=== PATIENT | male | born 1975 | race African-American/Black ===

== ENCOUNTER 2016-12-08 16:41 | Emergency (ER) | payer OTHER ==
[~2016-12-08] VITALS: Ht 190.5 cm; Wt 83.2 kg
[2016-12-08 16:45] VITALS: Ht 190.5 cm; Wt 83.2 kg
[2016-12-08] MEDS ORDERED: BUPIVACAINE 0.5 % 5 MG/1 ML MPF 30ML VIAL INFIL STA (16:52)
[2016-12-08] MEDS ORDERED: XYLOCAINE 1%/SOD BICARB 20 ML VIAL INFIL STA (16:52)
[2016-12-08] MEDS ORDERED: AMOXICILLIN/CLAVULANATE TAB 875 MG TAB PO STA (16:52)
--- NOTE | 2016-12-08 16:57 | EMERGENCY ROOM VISIT NOTE ---
ED Visit Note First contact with patient: 16:49 Chief Complaint: "Finger is split open, rt hand, 4th digit" History of Present Illness: this patient is a 41-year-old male who presents to the Emergency Department via private vehicle accompanied by female for evaluation of their right fourth digit laceration. Patient sustained the laceration while attempting to separate his 2 dogs. They report a moderate amount of bleeding initially. They deny any numbness or tingling into the distal extremity. They report no decreased range of motion of the affected digit. Patient rates his current discomfort as a 5/10. Patient's Tetanus status is currently up-to-date. Medications: None Allergies: As noted below. Specifically he notes an allergy to Percocet, but can take oxycodone. PMH: None reported SHx: patient lives locally with and kids. ROS: All pertinent positive and negative review of systems are appropriately documented in the History of Present Illness. Physical Exam: VITAL SIGNS - Vital signs and nursing notes were reviewed. Patient is afebrile , hypertensive at 141/68, non-tachycardic and is saturating well on room air 98% . GENERAL -41-year-old male appearing his stated age who is in no acute distress. Communicates well with provider and answers questions appropriately. SKIN - There is a 2 cm long laceration noted nearly circumferential around the distal portion of the right fourth digit through the proximal base of the fingernail. The edges gape apart with traction. No foreign bodies appreciated. Upon further examination there are deep structures including bony structures appreciated. There is no active bleeding noted. MUSCULOSKELETAL - Laceration as described above. +5/5 strength appreciated of the affected digit. Full range of motion of the affected digit. NEUROLOGIC -he is neurovascularly intact in this region. VASCULAR - Capillary refill was brisk. IMAGING: RIGHT FIFTH FINGER 3 VIEWS CLINICAL HISTORY: Fifth finger injury. FINDINGS: 3 views of the right fifth finger are obtained. No prior studies are available for comparison at the time of dictation. The skeletal structures are well mineralized. There is a minimally distracted avulsion fracture of the tuft of the fifth distal phalanx with overlying soft tissue edema and laceration. No additional fracture is seen. The fifth metacarpophalangeal and interphalangeal joints are preserved. No radiodense foreign body seen. IMPRESSION: Mildly distracted avulsion fracture through the tuft of the fifth distal phalanx with overlying soft tissue injury. Electronically signed by: Kobe Chong M.D. 12/08/2016 5:35 PM Dictated Date/Time: 12/08/2016 5:34 PM ED Course: Patient was seen and evaluated by myself. Risks and benefits of performing primary wound closure versus no repair were discussed with the patient who verbalizes understanding. The dog's rabies series are up-to-date, and his tetanus is up-to-date. Due to the nature and depth of the wound did elect to obtain a radiograph with results as above. This is now considered an open fracture given that there is a fracture and upon close examination there is a laceration down to the bone. Verbal consent was obtained prior to performing the procedure. 6 cc of 50/50 ratio of 1% buffered lidocaine and 0.5% bupivacaine was used to perform a digital block of the right fourth digit. The wound was cleansed and prepped in the typical sterile fashion utilizing normal saline and Betadine. The wound was sterilely draped. Patient was given Augmentin upon his arrival secondary to the nature of the wound, however after he was found to be an open fracture I did elect to consult orthopedics. I discussed the case with Dr. Canchola, at 6:22 PM, and he recommended an IV dose of antibiotics, outpatient management, loose closure of the wound, and prompt follow-up by having him call the office first thing tomorrow morning. Once proper anesthetization was established, the wound was further examined and demonstrated an open fracture. The wound was copiously irrigated with normal saline and Betadine. The wound was closed using 4 simple, 5-0 nylon sutures with the wound edges being well approximated. Patient tolerated the procedure well. No complications were met. The wound was cleansed and dressed with a Xeroform bulky dressing. A metal splint was applied to the finger for comfort. Patient educated on worrisome symptoms for return visit to the Emergency Department. Patient discharged to home in good condition. Prior to departure his vital signs did reveal that he was bradycardic. He was asymptomatic, and notes that he has had this since he was a child. An EKG was obtained secondary to the degree of bradycardia, and it was found to be 41 bpm, without ectopy or ischemic change. I told him that I would like to do a more thorough workup here, however he declined and he will follow-up in the outpatient setting. The case was discussed with my attending. He'll be discharged home with a prescription for Augmentin, as well as pain medicine. This will be in the form of oxycodone. He again noted that he can take this medication. In the treatment of this patient controlled medication was utilized and therefore the [facility], Prescription Drug Monitoring Program website was utilized to look up this patient. No concerns were identified that would prohibit or alter my treatment decision. In the evaluation and treatment of this patient, the following differential diagnoses were considered: Finger Fracture, Finger Dislocation, Finger Sprain, Finger Contusion, Jersey Finger, or Mallet Finger. Current/Historical Medications Scheduled Amoxicillin & Pot Clavulanate (Augmentin 875-125 mg), 1 TAB PO BID Scheduled PRN Oxycodone Ir (Roxicodone Ir), 1-2 TAB PO Q4H PRN for Pain Allergies Coded Allergies: Acetaminophen (Unverified Adverse Reaction, Severe, STOMACH CRAMPS, 12/08/16 ) Oxycodone (Unverified Adverse Reaction, Severe, STOMACH CRAMPS, 12/08/16) Uncoded Allergies: N (Allergy, Unknown, 07/22/02) NKDA (Allergy, Unknown, 07/22/02) Vital Signs Date Time Temp Pulse Resp B/P (MAP) Pulse Ox O2 Delivery O2 Flow Rate FiO2 12/08/16 20:03 36.9 39 18 133/80 98 12/08/16 19:27 42 140/74 41 135/85 39 133/80 12/08/16 19:21 43 18 132/73 98 Room Air 12/08/16 16:45 36.9 59 18 141/68 98 Room Air Laboratory Results 12/08/16 19:09 12/08/16 19:09 Test 12/08/16 19:09 Red Blood Count 4.64 M/uL (4.7-6.1) Mean Corpuscular Volume 93.5 fL (80-100) Mean Corpuscular Hemoglobin 32.3 pg (25-34) Mean Corpuscular Hemoglobin Concent 34.6 g/dl (32-36) RDW Standard Deviation 41.2 fL (36.4-46.3) RDW Coefficient of Variation 12.1 % (11.5-14.5) Mean Platelet Volume 11.0 fL (7.4-10.4) Anion Gap 9.0 mmol/L (3-11) Est Creatinine Clear Calc Drug Dose 105.1 ml/min Estimated GFR () 96.8 Estimated GFR (Non- 83.5 BUN/Creatinine Ratio 7.4 (10-20) Calcium Level 9.1 mg/dl (8.5-10.1) Medications Administered Medications (Trade) Dose Ordered Sig/Jaime Route Start Time Stop Time Status Last Admin Dose Admin Amoxicillin/ Clavulanate Potassium (Augmentin Tab) 875 mg NOW STAT PO 12/08/16 16:52 12/08/16 16:55 DC 12/08/16 17:14 875 MG Cefazolin Sodium (Ancef 1000mg/55 ml D5W) 1,000 mg NOW STAT IV 12/08/16 18:26 12/08/16 18:27 DC 12/08/16 18:57 1,000 MG Oxycodone HCl (Roxicodone Immediate Rel 5MG Home Pack) 1 homepack UD STAT PO 12/08/16 18:47 12/08/16 18:48 DC 12/08/16 18:47 1 HOMEPACK Amoxicillin/ Clavulanate Potassium (Augmentin 875MG Home Pack) 1 homepack UD STAT PO 12/08/16 18:47 12/08/16 18:49 DC 12/08/16 18:47 1 HOMEPACK Departure Information Impression Primary Impression: Laceration Additional Impression: Open fracture of finger of right hand Dispostion Home / Self-Care Condition GOOD Prescriptions Oxycodone Ir (Roxicodone Ir) 5 Mg Tab 1-2 TAB PO Q4H Y for Pain, #15 TAB For Initial Treatment Prov: Matthew Velez PA-C 12/08/16 Amoxicillin & Pot Clavulanate (Augmentin 875-125 mg) 1 Tab Tab 1 TAB PO BID, #10 TAB Prov: Matthew Velez PA-C 12/08/16 Referrals No Doctor, Assigned (PCP) Marcos Canchola D.O. Patient Instructions [facility] Additional Instructions Discharge Instructions: You have received 4 sutures on your right 5th digit. These sutures are NOT dissolvable and WILL need to be removed by a health care provider in 14 days. You can return to the Emergency Department or the orthopedic doctor. Please wear the splint for comfort until the sutures are removed. Because there is a fractured of your finger, the orthopedic surgeon has been consulted. They recommend you call their office first thing tomorrow morning. ( Dr. Canchola) Number listed. Proper wound care is essential for adequate wound healing and infection prevention. You can shower and clean the wound with soap and water. Do not scour over the wound, pat dry with a towel. Do not submerse the wound (i.e. bathe or dish wash) until the sutures have been removed. You can use an antibiotic ointment with a dressing over the wound for the next 3-4 days. After this time you may leave the wound dry and open to the air. If crust develops over the wound you can use a Q-tip to apply a 1:1 peroxide:water solution to clean the wound. Look for signs of infection of the wound including: increased pain, swelling, foul discharge, streaking, or increased temperature. If any of these are noticed you should return to the Emergency Department for further assessment and treatment. As with any laceration you may have received nerve damage to the surrounding tissues. This damage may or may not be permanent. You should keep the area covered with sunscreen for the first 6 months to 1 year when at risk for exposure to help minimize scarring. You can also use scar reducing creams or Vitamin E oil to help minimize scarring. For pain control, you can use the following [id number] medicines (if >12 yo): - Regular strength (325mg/tab) Tylenol (acetaminophen) 2 tabs every 4-6 hours as needed. Do not exceed 12 tablets in a 24 hour period. Avoid taking more than 3 grams (3000 mg) of Tylenol per day. This includes any other sources of acetaminophen you may take on a regular basis. - Regular strength (200 mg/tab) Advil (ibuprofen) 1-2 tabs every 4-6 hours as needed. Do not exceed a dose of 3200 mg per day. Return to the emergency department if your symptoms worsen despite treatment course outlined above. Please take the Augmentin to help prevent infection. This is one tablet every 12 hours. Please return to the emergency department with any new/concerning symptoms. Problem Qualifiers
--- NOTE | 2016-12-08 17:37 | DIAGNOSTIC IMAGING REPORT ---
RIGHT FIFTH FINGER 3 VIEWS CLINICAL HISTORY: Fifth finger injury. FINDINGS: 3 views of the right fifth finger are obtained. No prior studies are available for comparison at the time of dictation. The skeletal structures are well mineralized. There is a minimally distracted avulsion fracture of the tuft of the fifth distal phalanx with overlying soft tissue edema and laceration. No additional fracture is seen. The fifth metacarpophalangeal and interphalangeal joints are preserved. No radiodense foreign body seen. IMPRESSION: Mildly distracted avulsion fracture through the tuft of the fifth distal phalanx with overlying soft tissue injury. Electronically signed by: Kobe Chong M.D. 12/08/2016 5:35 PM Dictated Date/Time: 12/08/2016 5:34 PM
[2016-12-08] MEDS ORDERED: CEFAZOLIN SOD 1000MG/55 ML D5W IV STA (18:26)
[2016-12-08] MEDS ORDERED: AMOXICIL/CLAVU 875MG HOME PACK PO STA (18:47)
[2016-12-08] MEDS ORDERED: OXYCODONE IR HOME PACK PO STA (18:47)
[2016-12-08] MEDS ORDERED: OXYC1TAB3 PO (18:51)
[2016-12-08] MEDS ORDERED: AMOX875T PO (18:51)
[2016-12-08 19:15] LABS: HEMATOCRIT 43.4 % (42-52); MEAN CELL VOLUME 93.5 fL (80-100); MEAN CORPUSCULAR HEMOGLOBIN 32.3 pg (25-34); MEAN CORPUSCULAR HGB CONC 34.6 g/dl (32-36); PLATELET COUNT 152 K/uL (130-400); RED BLOOD COUNT 4.64 M/uL (4.7-6.1); WHITE BLOOD COUNT 8.59 K/uL (4.8-10.8)
[2016-12-08 19:36] LABS: BUN/CREATININE RATIO 7.4 (10-20); CALCIUM 9.1 mg/dl (8.5-10.1); CREATININE 1.1 mg/dl (0.60-1.40); POTASSIUM 3.7 mmol/L (3.5-5.1)
[2016-12-08 20:03] VITALS: BP 133/80; PULSE 39; TEMP 36.9; O2SAT 98
== END 2016-12-08 20:04 | disposition home or self-care (01) ==
LOC: C.EDB 16:42 → C.EDD 20:04
DX: S62.604B Fracture of unspecified phalanx of right ring finger, initial encounter for open fracture (principal); S61.214A Laceration without foreign body of right ring finger without damage to nail, initial encounter; X58.XXXA Exposure to other specified factors, initial encounter; Z88.5 Allergy status to narcotic agent; Z88.6 Allergy status to analgesic agent

== ENCOUNTER 2016-12-10 01:44 | Emergency (ER) | payer OTHER ==
[~2016-12-10] VITALS: Ht 190.5 cm; Wt 69.3 kg
[~2016-12-10 01:44] MED LIST: AMOX875T PO; OXYC1TAB3 PO
[2016-12-10 01:48] VITALS: Ht 190.5 cm; Wt 69.3 kg
[2016-12-10 02:09] VITALS: TEMP 36.6
[2016-12-10 02:11] VITALS: BP 127/61; PULSE 44; O2SAT 98
--- NOTE | 2016-12-10 06:49 | EMERGENCY ROOM VISIT NOTE ---
History First contact with patient: 01:51 Chief Complaint: LACERATION/CUT (SUT/DERMABOND) Stated Complaint: FINGER LACERATION-EXISTING STITCHES,MED CLEARANCE Nursing Triage Summary: here with [employer] pt got stitches right pinky finger on friday needs it rechecked so he can be cleared to go with police History of Present Illness The patient is a 41 year old male who presents to the Emergency Room for medical clearance. The patient is currently under police custody and needs medical clearance in order to go to detention. The patient was seen 2 days ago at this facility for a dog bite laceration to his left index finger. The patient is currently on Augmentin for this and is tolerating his medication well. The patient does not have additional complaints and rates his discomfort a 0/10. Review of Systems More than 10 systems were reviewed and otherwise negative with the exception of history of present illness. Past Medical/Surgical History No chronic medical disease Family History No pertinent family history Social History Smoking Status: Current Every Day Smoker Housing Status: lives with family Current/Historical Medications Scheduled Amoxicillin & Pot Clavulanate (Augmentin 875-125 mg), 1 TAB PO BID Scheduled PRN Oxycodone Ir (Roxicodone Ir), 1-2 TAB PO Q4H PRN for Pain Allergies Coded Allergies: Acetaminophen (Unverified Adverse Reaction, Severe, STOMACH CRAMPS, 12/08/16 ) Oxycodone (Unverified Adverse Reaction, Severe, STOMACH CRAMPS, 12/08/16) Uncoded Allergies: N (Allergy, Unknown, 07/22/02) NKDA (Allergy, Unknown, 07/22/02) Physical Exam Vital Signs Date Time Temp Pulse Resp B/P (MAP) Pulse Ox O2 Delivery O2 Flow Rate FiO2 12/10/16 02:11 44 18 127/61 98 Room Air 12/10/16 02:09 36.6 90 18 96/44 100 12/10/16 01:48 36.6 90 18 96/44 100 Room Air Pain Rating (0-10): 0 Physical Exam VITALS: Vitals are noted on the nurse's note and reviewed by myself. Vital signs stable. GENERAL: Well-developed, well-nourished, black male, who is in no acute distress and resting comfortably. Patient is cooperative with the examination. HEAD: Normocephalic atraumatic. HEART: Regular rate and rhythm without murmurs gallops or rubs. LUNGS: Clear to auscultation bilaterally without wheezes, rales or rhonchi. No retractions or accessory muscle use. ABDOMEN: Positive normal bowel sounds x 4. Soft, nontender, without masses or organomegaly. No guarding or rebound tenderness. MUSCULOSKELETAL: No muscle atrophy, erythema, or edema noted. Full range of motion without joint tenderness in all extremities. The patient has a well- healing dog bite laceration to the right second digit. No significant cellulitis or abscess noted. Medical Decision & Procedures ED Course Physical exam and history were performed. Nursing notes and EMR were reviewed. Patient appears to have a need for medical clearance in order to get a presents today. He is currently under police custody. The patient appears well on examination. His dog bite laceration is healing well. The patient will need to be continued on Augmentin as previously prescribed, but he is otherwise medically cleared for discharge. The patient was given discharge instructions as below and invited back to the ER with any new, worsening, or concerning symptoms. The chart was completed utilizing [employer] Speech Voice Recognition Software. Grammatical errors, random word insertions, pronoun errors, and incomplete sentences are an occasional consequence of this system due to software limitations, ambient noise, and hardware issues. Any formal questions or concerns about the content, text, or information contained within the body of this dictation should be directly addressed to the provider for clarification. . Medical Decision Differential diagnosis: Etiologies such as Medical clearance, cellulitis, abscess, MRSA infection, DVT, necrotizing fasciitis, dermatitis, drug eruption, as well as others were entertained.. Impression Primary Impression: Medical clearance for incarceration Additional Impression: Healing laceration Departure Information Dispostion Other (Police Custody) Condition GOOD Forms HOME CARE DOCUMENTATION FORM, IMPORTANT VISIT INFORMATION Patient Instructions [facility] Additional Instructions You were seen and evaluated today on an emergency basis only. This is not a substitute for, or an effort to provide, complete comprehensive medical care. It is not possible to recognize and treat all injuries or illnesses in a single emergency department visit. For this reason it is recommended that you followup with the [facility] for ongoing care and evaluation. You will need to follow with orthopedics as previously instructed. Continue Augmentin twice daily as previously instructed You are otherwise considered to be medically cleared. You are welcome to return to the emergency department anytime with new, worsening, or concerning symptoms. Problem Qualifiers
== END 2016-12-10 02:10 | disposition home or self-care (01) ==
LOC: C.EDB 01:45 → C.EDA 02:10
DX: Z02.89 Encounter for other administrative examinations (principal); S61.251D Open bite of left index finger without damage to nail, subsequent encounter; X58.XXXD Exposure to other specified factors, subsequent encounter; F17.200 Nicotine dependence, unspecified, uncomplicated